=== PATIENT | female | born 1965 | race Caucasian/White ===

== ENCOUNTER → 2019-04-23 17:11 | Outpatient (CLI) | payer OTHER, SELFPAY ==
--- NOTE | 2019-04-23 17:15 | DI.RAD.S_ITS ---
PROCEDURE: XR FOOT RT MIN 3V INDICATIONS: Pain to 4th metatarsal TECHNIQUE: 3 views of the foot were acquired. COMPARISON: None. FINDINGS: Bones: There is a mildly displaced oblique fracture of the proximal phalanx of the 4th toe, with mild overlapping of fragments. No intra-articular involvement is seen. No additional fractures are detected. There is made of fragmented medial and lateral sesamoid bones. Incidental note is made of an accessory ossicle, an os trigonum. A plantar calcaneal spur is seen. Soft tissues: No tibiotalar joint effusion. Achilles tendon appears normal. IMPRESSION: Mildly displaced fracture of the proximal phalanx of the 4th toe. Dictated by: Lake Armas M.D. on 04/23/2019 at 16:33 Approved by: Lake Armas M.D. on 04/23/2019 at 16:34
== END ==
PROVIDERS: Referring Provider Nurse Practitioner; Visit Provider Nurse Practitioner
DX: M79.671 Pain in right foot (principal); S92.511A Displaced fracture of proximal phalanx of right lesser toe(s), initial encounter for closed fracture; W22.8XXA Striking against or struck by other objects, initial encounter
CPT/HCPCS: 73630

== ENCOUNTER → 2022-09-18 08:47 | Outpatient (CLI) | payer OTHER, SELFPAY | PROVIDERS: Family Provider Internal Medicine; PCP Internal Medicine; Referring Provider Internal Medicine; Visit Provider Internal Medicine | DX: R29.898 Other symptoms and signs involving the musculoskeletal system (principal); R20.0 Anesthesia of skin | CPT/HCPCS: 95886; 95910 ==